=== PATIENT | male | born 1950 | race Caucasian/White ===

== ENCOUNTER 2016-10-28 21:13 | Emergency (ER) | payer OTHER | END 2016-10-29 01:01 | disposition home or self-care (01) | LOC: D.ER 21:13 | DX: E09.65 Drug or chemical induced diabetes mellitus with hyperglycemia (principal); T38.0X5A Adverse effect of glucocorticoids and synthetic analogues, initial encounter; Y92.89 Other specified places as the place of occurrence of the external cause; I25.10 Atherosclerotic heart disease of native coronary artery without angina pectoris; I10 Essential (primary) hypertension ==

== ENCOUNTER 2016-11-05 11:51 | Emergency (ER) | payer OTHER ==
[2016-11-05 12:51] LABS: BASOPHILS 0.2 % (0.0-2.0); EOSINOPHILS 3.4 % (0-7); HEMATOCRIT 39.3 % (42.0-54.0); HEMOGLOBIN 13.3 g/dL (13.5-17.5); IMMATURE GRANULOCYTES 0.4 % (0-5); LYMPHOCYTES 10.2 % (15-50); MCH 26.4 pg (26.0-34.0); MCHC 33.8 g/dL (31.0-37.0); MCV 78.1 fL (80.0-100.0); MEAN PLATELET VOLUME 11.4 fL (7.4-10.4); MONOCYTES 6.6 % (2-11); NEUTROPHILS 79.2 % (40-80); PLATELET COUNT 353 10x3/uL (130-400); RBC 5.03 10x6/uL (4.20-6.10); RDW 15.1 % (11.5-14.5); WBC 13.9 10x3/uL (4.8-10.8)
[2016-11-05 13:28] LABS: ANION GAP 23.5 mmol/L (8-16); BILIRUBIN - TOTAL 20.17 mg/dL (0.2-1.3); CALCIUM 10.4 mg/dL (8.5-10.1); CARBON DIOXIDE 14.8 mmol/L (21.0-32.0); CREATININE - SERUM 5.7 mg/dL (0.6-1.3); POTASSIUM - SERUM 5.3 mmol/L (3.5-5.1)
[2016-11-05 13:29] LABS: ALBUMIN 2.4 g/dL (3.4-5.0); PROTEIN - SERUM 6.9 g/dL (6.4-8.2)
== END 2016-11-05 16:45 | disposition short-term general hospital (02) ==
LOC: D.ER 11:51
PROVIDERS: Emergency Medicine
DX: N17.9 Acute kidney failure, unspecified (principal); K72.00 Acute and subacute hepatic failure without coma; E11.65 Type 2 diabetes mellitus with hyperglycemia

== ENCOUNTER 2017-01-25 20:25 | Emergency (ER) | payer OTHER ==
[2017-01-25 21:10] LABS: BASOPHILS 0 % (0.0-2.0); EOSINOPHILS 0.7 % (0-7); HEMATOCRIT 30.6 % (42.0-54.0); HEMOGLOBIN 9.4 g/dL (13.5-17.5); IMMATURE GRANULOCYTES 0.5 % (0-5); LYMPHOCYTES 8.9 % (15-50); MCH 26.3 pg (26.0-34.0); MCHC 30.7 g/dL (31.0-37.0); MCV 85.7 fL (80.0-100.0); MEAN PLATELET VOLUME 9.7 fL (7.4-10.4); MONOCYTES 0.6 % (2-11); NEUTROPHILS 89.3 % (40-80); RBC 3.57 10x6/uL (4.20-6.10); RDW 17.4 % (11.5-14.5); WBC 8.7 10x3/uL (4.8-10.8)
[2017-01-25 21:11] LABS: PLATELET COUNT 268 10x3/uL (130-400)
[2017-01-25 21:22] LABS: APTT 24.1 SECONDS (22.8-39.4); INR 0.92 (0.85-1.17); PROTIME 12.2 SECONDS (11.6-15.0)
[2017-01-25 21:23] LABS: ALBUMIN 2.9 g/dL (3.4-5.0); ANION GAP 17.6 mmol/L (8-16); BILIRUBIN - TOTAL 0.63 mg/dL (0.2-1.3); CALCIUM 8.7 mg/dL (8.5-10.1); CARBON DIOXIDE 18.6 mmol/L (21.0-32.0); CREATININE - SERUM 1.9 mg/dL (0.6-1.3); MAGNESIUM - SERUM 1.6 mg/dL (1.8-2.4); POTASSIUM - SERUM 4.2 mmol/L (3.5-5.1); PROTEIN - SERUM 6.9 g/dL (6.4-8.2)
== END 2017-01-25 23:51 | disposition short-term general hospital (02) ==
LOC: D.ER 20:25
PROVIDERS: Emergency Medicine
DX: I77.1 Stricture of artery (principal); E11.69 Type 2 diabetes mellitus with other specified complication

== ENCOUNTER 2017-02-27 19:07 | Emergency (ER) | payer OTHER ==
[2017-02-27 20:05] LABS: HEMATOCRIT 25.5 % (42.0-54.0); MCH 25.6 pg (26.0-34.0); MCHC 31.4 g/dL (31.0-37.0); MCV 81.7 fL (80.0-100.0); MEAN PLATELET VOLUME 9.7 fL (7.4-10.4); RBC 3.12 10x6/uL (4.20-6.10)
[2017-02-27 20:09] LABS: PLATELET COUNT 102 10x3/uL (130-400); WBC 1.2 10x3/uL (4.8-10.8)
[2017-02-27 20:41] LABS: ALBUMIN 2.8 g/dL (3.4-5.0); ANION GAP 19.4 mmol/L (8-16); BILIRUBIN - TOTAL 1.74 mg/dL (0.2-1.3); CALCIUM 8.4 mg/dL (8.5-10.1); CARBON DIOXIDE 17.3 mmol/L (21.0-32.0); CREATININE - SERUM 1.6 mg/dL (0.6-1.3); POTASSIUM - SERUM 3.7 mmol/L (3.5-5.1); PROTEIN - SERUM 6.3 g/dL (6.4-8.2)
[2017-02-27 20:59] LABS: LYMPHOCYTES 42 % (15-50); NEUTROPHILS 58 % (40-80); PLATELET ESTIMATE DECREASED
[2017-02-27 21:10] LABS: TROPONIN-I 0.093 ng/mL (0.000-0.060)
== END 2017-02-28 00:50 | disposition home or self-care (01) ==
LOC: D.ER 19:07
PROVIDERS: Family Medicine
DX: R50.9 Fever, unspecified (principal); R79.89 Other specified abnormal findings of blood chemistry; I25.10 Atherosclerotic heart disease of native coronary artery without angina pectoris; E11.9 Type 2 diabetes mellitus without complications; I10 Essential (primary) hypertension; C22.1 Intrahepatic bile duct carcinoma

== ENCOUNTER 2017-03-25 02:58 | Emergency (ER) | payer OTHER ==
[2017-03-25 03:40] LABS: BASOPHILS 0.2 % (0-2); EOSINOPHILS 0.1 % (0-7); HEMATOCRIT 22.9 % (42.0-54.0); IMMATURE GRANULOCYTES 1.3 % (0-5); LYMPHOCYTES 16.3 % (15-50); MCH 27.9 pg (26.0-34.0); MCHC 31.4 g/dL (31.0-37.0); MCV 88.8 fL (80.0-100.0); MONOCYTES 11.8 % (2-11); NEUTROPHILS 70.3 % (40-80); RBC 2.58 10x6/uL (4.20-6.10); RDW 18.1 % (11.5-14.5); WBC 13.9 10x3/uL (4.8-10.8)
[2017-03-25 03:46] LABS: HEMOGLOBIN 7.2 g/dL (13.5-17.5); PLATELET COUNT 516 10x3/uL (130-400)
[2017-03-25 03:53] LABS: ALBUMIN 2.3 g/dL (3.4-5.0); ANION GAP 30.7 mmol/L (8-16); BILIRUBIN - TOTAL 1.72 mg/dL (0.2-1.3); CALCIUM 8.7 mg/dL (8.5-10.1); CARBON DIOXIDE 10.1 mmol/L (21.0-32.0); CREATININE - SERUM 2.4 mg/dL (0.6-1.3); POTASSIUM - SERUM 4.8 mmol/L (3.5-5.1); PROTEIN - SERUM 6.3 g/dL (6.4-8.2)
[2017-03-25 04:09] LABS: TROPONIN-I 0.318 ng/mL (0.000-0.060)
== END 2017-03-25 06:27 | disposition home or self-care (01) ==
LOC: D.ER 02:58
PROVIDERS: Family Medicine
DX: I99.8 Other disorder of circulatory system (principal); C16.9 Malignant neoplasm of stomach, unspecified; N28.9 Disorder of kidney and ureter, unspecified; I25.10 Atherosclerotic heart disease of native coronary artery without angina pectoris; E11.9 Type 2 diabetes mellitus without complications; I10 Essential (primary) hypertension